=== PATIENT | male | born 1975 | race Caucasian/White ===

== ENCOUNTER 2019-01-01 12:31 | Emergency (ER) | payer SELFPAY ==
[~2019-01-01] VITALS: Ht 175.3 cm; Wt 81.8 kg
[2019-01-01] MEDS ORDERED: KETOROLAC TROMETHAMINE 10 MG TAB PO ONE (14:30)
--- NOTE | 2019-01-01 14:58 | REP ---
CT STUDY LUMBAR SPINE WITHOUT CONTRAST: HISTORY: Trauma. Question lumbosacral spine and coccygeal fracture. FINDINGS: No sacral or coccygeal fracture is appreciated. There is a nontraumatic bilateral L5 spondylolysis and a 2 mm grade 1 L5-S1 spondylolisthesis is seen. There is mild degenerative disc space narrowing at L4-5 and there is diffuse disc bulging. No central canal stenosis is seen. No bony neural foraminal narrowing is seen. There is minimal disc bulging at L3-4 diffusely as well. There is a small Schmorl's node at the superior endplate of L3 with some associated sclerosis. Similar findings are seen at the superior endplate of L2. At L1, there is a wedge-shaped compression fracture deformity with 25% loss of anterior vertebral body heights and some buckling of the anterior cortex. There is no significant soft tissue swelling in the paravertebral soft tissues. No retropulsion is seen. Study is otherwise unremarkable. There is degenerative disc disease at T11-12. IMPRESSION: There is an anterior wedge compression fracture deformity at L1 with 25% loss of anterior vertebral body height. No evidence of central canal stenosis, retropulsion, or posterior element involvement. No coccygeal or sacral fracture is seen. Lumbar vertebral bodies otherwise intact. There is a bilateral L5 spondylolysis and a 2 mm grade 1 L5-S1 spondylolisthesis. Electronically Signed by Abhishek Weaver MD 01/01/2019 07:23 P
[2019-01-01 16:36] VITALS: BP 134/78
--- NOTE | 2019-01-03 19:43 | ED PDOC ---
Post-Departure Follow-Up dr bojorquez faxed formal report of ct ls spine for fu Carlos Monsivais MD Jan 03, 2019 19:43
== END 2019-01-01 16:53 | disposition home or self-care (01) ==
LOC: M ED 12:31
DX: S32.010A Wedge compression fracture of first lumbar vertebra, initial encounter for closed fracture (principal); W22.8XXA Striking against or struck by other objects, initial encounter; Y92.89 Other specified places as the place of occurrence of the external cause; M43.10 Spondylolisthesis, site unspecified